=== PATIENT | male | born 1980 | race Caucasian/White ===

== ENCOUNTER 2020-05-04 14:23 | Emergency (ER) | payer MEDICAID, SELFPAY ==
[2020-05-04 14:31] VITALS: BP 77/57; PULSE 84; RESP 14; TEMP 36.1; O2SAT 96; BMI 20.6
--- NOTE | 2020-05-04 16:34 | ED_ITS ---
Documented by User: Veronica [email or web address] 05/04/20 16:53 HPI - Male Genitourinary General: Chief complaint: Urogenital-Male Stated complaint: sore throat/Dark Urine Time Seen by Provider: 05/04/20 16:24 Source: patient Mode of arrival: ambulatory Limitations: no limitations History of Present Illness: HPI Narrative: 39-year-old male patient presents to the emergency department with caregiver caregiver states patient is MRN does not verbalize. Caregiver states patient was running a fever so they took him to the clinic and had him tested for COVID which was negative. Caregiver also states she noticed that urine was dark and very strong caregiver states otherwise he is at his normal baseline. this has been going on for past few days Review of Systems General: Reports: 10 or more systems reviewed and unremarkable except in HPI and below, ROS unobtainable due to medical condition and ROS unobtainable due to mental status Const: Reports: fever(s) Physical Exam Narrative: EXAM NARRATIVE: Pt is yelling out which is normal for patients baseline of MR. Lungs are clear to auscultate heart rate is normal rate and rhythm Skin is pink warm and dry There is no obvious extremity edema pulses are strong and palpable I am unable to assess abdomen other than it is soft and nondistended and able to see if abdomen is tender due to patient's mentation HENMT: COMMON NORMALS: normocephalic and atraumatic HEAD & SCALP: normocephalic and atraumatic Eye: COMMON NORMALS: Equal, round and reactive pupils present PUPIL: Yes Equal, round and reactive pupils present Chest: COMMONS NORMALS: normal inspection of the chest Resp: COMMON NORMALS: normal respiratory effort, No retractions, No use of accessory muscles, clear to auscultation bilaterally and percussion normal AUSCULTATION: clear to auscultation bilaterally PERCUSSION: percussion normal Cardio: COMMON NORMALS: regular rate and regular rhythm RATE: regular rate RHYTHM: regular rhythm GI: COMMON NORMALS: Normal to inspection, nondistended, normoactive bowel sounds present and Soft to palpation PALPATION: Yes Soft to palpation Extremity: COMMON NORMALS: normal to inspection, capillary refill normal and no joint enlargement Neuro: MAGDI COMA SCALE: other (PT has history of MR and is unable to verbalize according to caregiver this is his normal baseline) Skin: COMMON NORMALS: no rashes or lesions noted, no wounds, turgor normal, no jaundice, no petechiae and no mottling GENERAL SKIN EXAM: no rashes or lesions noted and turgor normal Course ED course: Report given to Adrian Orozco he will assume care at this time Vital Signs: Vital signs: Vital Signs Temperature 97.0 F L 05/04/20 14:31 Pulse Rate 76 05/04/20 20:02 Respiratory Rate 18 05/04/20 20:02 Blood Pressure 94/52 05/04/20 20:02 Pulse Oximetry 97 05/04/20 20:02 MDM - Male Lab Data: Labs: Lab Results 05/04/20 05/04/20 05/04/20 Range/Units 16:30 16:30 16:30 WBC 16.1 H (4.0-10.0) 10^3/ uL RBC 3.99 L (4.1-5.3) 10^6/u L Hgb 12.1 (11.7-16.6) g/dL Hct 36.9 L (42.0-52.0) % MCV 92.5 (80-94) fL MCH 30.3 (28.0-34.0) pg MCHC 32.8 (30.0-36.0) g/dL RDW 12.5 (12.1-15.1) % Plt Count 191 (130-400) 10^3/c mm MPV 9.8 (7.4-10.4) fL Neut % (Auto) 83.7 % Lymph % (Auto) 9.2 % [place] % (Auto) 6.1 % Eos % (Auto) 0.2 % Baso % (Auto) 0.1 % Neut # (Auto) 13.48 H (1.8-7.7) 10^3/u L Lymph # (Auto) 1.5 (0.8-4.8) 10^3/u L [place] # (Auto) 1.0 H (0.2-0.9) 10^3/u L Eos # (Auto) 0.0 (0.0-0.8) 10^3/u L Baso # (Auto) 0.0 (0.0-0.1) 10^3/u L Nucleated RBC % (a uto) 0 % Nucleated RBCs # 0.0 /100WBC Sodium 137 (136-145) mmol/L Potassium 4.2 (3.5-5.1) mmol/L Chloride 99 (98-107) mmol/L Carbon Dioxide 23 (22-29) mmol/L Anion Gap 19.2 H (5-19) BUN 24 H (6-20) mg/dL Creatinine 1.1 (0.7-1.2) mg/dL GFR Calculation 73.8 L (90-130) mL/min Glucose 117 H (65-115) mg/dL Calculated Osmolal ity 289 (285-295) mOsm/k g Lactate 1.5 (0.5-2.2) mmol/L Calcium 10.1 (8.5-10.5) mg/dL Total Bilirubin 0.5 (0.15-1.2) mg/dL AST 16 (0-40) U/L ALT 20 (0-41) U/L Alkaline Phosphata se 88 (40-130) IU/L Total Protein 7.7 (6.6-8.7) g/dL Albumin 4.1 (3.5-5.2) g/dL Globulin 3.6 (1.3-4.6) g/dL Urine Color (Yellow) Urine Appearance (CLEAR) Urine pH (5-7) Ur Specific Gravit y (1.005-1.030) Urine Protein (Negative) Urine Glucose (UA) (Normal) Urine Ketones (Negative) Urine Blood (Negative) Urine Nitrate (Negative) Urine Bilirubin (Negative) Urine Urobilinogen (Negative) mg/dL Ur Leukocyte Arlene ase (Negative) Urine RBC (0-2) /hpf Urine WBC (0-5) /hpf Ur Squamous Epith Cells (0-5) /hpf Amorphous Sediment Urine Bacteria (NONE) /hpf Group A Strep Rapi d (Negative) 05/04/20 05/04/20 Range/Units 16:33 18:49 WBC (4.0-10.0) 10^3/ uL RBC (4.1-5.3) 10^6/u L Hgb (11.7-16.6) g/dL Hct (42.0-52.0) % MCV (80-94) fL MCH (28.0-34.0) pg MCHC (30.0-36.0) g/dL RDW (12.1-15.1) % Plt Count (130-400) 10^3/c mm MPV (7.4-10.4) fL Neut % (Auto) % Lymph % (Auto) % [place] % (Auto) % Eos % (Auto) % Baso % (Auto) % Neut # (Auto) (1.8-7.7) 10^3/u L Lymph # (Auto) (0.8-4.8) 10^3/u L [place] # (Auto) (0.2-0.9) 10^3/u L Eos # (Auto) (0.0-0.8) 10^3/u L Baso # (Auto) (0.0-0.1) 10^3/u L Nucleated RBC % (a uto) % Nucleated RBCs # /100WBC Sodium (136-145) mmol/L Potassium (3.5-5.1) mmol/L Chloride (98-107) mmol/L Carbon Dioxide (22-29) mmol/L Anion Gap (5-19) BUN (6-20) mg/dL Creatinine (0.7-1.2) mg/dL GFR Calculation (90-130) mL/min Glucose (65-115) mg/dL Calculated Osmolal ity (285-295) mOsm/k g Lactate (0.5-2.2) mmol/L Calcium (8.5-10.5) mg/dL Total Bilirubin (0.15-1.2) mg/dL AST (0-40) U/L ALT (0-41) U/L Alkaline Phosphata se (40-130) IU/L Total Protein (6.6-8.7) g/dL Albumin (3.5-5.2) g/dL Globulin (1.3-4.6) g/dL Urine Color Yellow (Yellow) Urine Appearance Hazy A (CLEAR) Urine pH 5 (5-7) Ur Specific Gravit y 1.020 (1.005-1.030) Urine Protein 1+ H (Negative) Urine Glucose (UA) Norm (Normal) Urine Ketones 1+ H (Negative) Urine Blood 3+ H (Negative) Urine Nitrate Negative (Negative) Urine Bilirubin Neg (Negative) Urine Urobilinogen 1 H (Negative) mg/dL Ur Leukocyte Arlene ase 2+ H (Negative) Urine RBC 25-40 H (0-2) /hpf Urine WBC 25-40 H (0-5) /hpf Ur Squamous Epith Cells 0-4 H (0-5) /hpf Amorphous Sediment Not Reportable Urine Bacteria 2+ H (NONE) /hpf Group A Strep Rapi d Negative (Negative) Discharge Plan Discharge Patient Disposition: Home Clinical Impression: Urinary tract infection Qualifiers: Urinary tract infection type: acute cystitis Hematuria presence: with hematuria Qualified Code(s): N30.01 - Acute cystitis with hematuria Condition: Stable Prescriptions: New Macrobid 100 mg capsule 100 mg PO BID 7 Days Qty: 14 RF: 0 No Action cyclobenzaprine 10 mg Tablet 10 mg PO DAILY PRN (Reason: MUSCLE SPASMS) RF: 0 terbinafine HCl 1 % Cream 1 applic TOPICAL BID PRN (Reason: Rash) RF: 0 acetaminophen 325 mg Tablet 325 - 650 mg PO Q4H PRN (Reason: Pain) RF: 0 loratadine 5 mg/5 mL Solution 10 mg PO DAILY PRN (Reason: ALLERGIES) RF: 0 loperamide 2 mg Tablet 2 mg PO QID PRN (Reason: LOOSE STOOLS) RF: 0 amlodipine 5 mg Tablet 5 mg PO DAILY RF: 0 lorazepam 2 mg Tablet See Rx Instructions .ROUTE .COMPLEX RF: 0 hydrocortisone 1 % Cream See Rx Instructions .ROUTE .COMPLEX RF: 0 Banophen 25 mg Capsule 25 mg PO Q6H PRN (Reason: HIVES) RF: 0 metoprolol tartrate 50 mg Tablet 50 mg PO BID RF: 0 Fleet Enema 19-7 gram/118 mL Enema See Rx Instructions .ROUTE .COMPLEX RF: 0 omeprazole 20 mg Capsule,Delayed Release(Dr/Ec) 20 mg PO DAILY RF: 0 carbamazepine 100 mg/5 mL Suspension 10 mg PO BID RF: 0 ibuprofen 100 mg/5 mL Suspension See Rx Instructions .ROUTE .COMPLEX PRN (Reason: PAIN/FEVER) RF: 0 irbesartan 300 mg Tablet 300 mg PO DAILY RF: 0 Constulose 10 gram/15 mL Solution 20 g PO BID RF: 0 tizanidine 2 mg Capsule 2 mg PO TID RF: 0 Diastat AcuDial 5-7.5-10 mg Kit See Rx Instructions .ROUTE .COMPLEX RF: 0 Plus 29 mg iron- 1 mg Tablet 1 tab PO DAILY RF: 0 Robitussin Cold-Flu Night (PE) 12.5-5-325 mg/10 mL Liquid See Rx Instructions .ROUTE .COMPLEX PRN (Reason: Agitation) RF: 0 Discharge Orders: Discharge Order (Routine); Ordered 05/04/20 Ordered By: Adrian Orozco Referrals: Chad Luis DO [Primary Care Provider] - Discharge Diet: Advance as tolerated Discharge Activity: Resume usual activity Patient Instructions: Urinary Tract Infection in Men (ED) Activity Restrictions/Additional Instructions: Follow-up with medical provider as directed. Take medications as prescribed. Return to the ER or your medical provider if condition worsens. Please read and understand discharge instructions. If any questions ask please. 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 Documented by User: AL Hanson 05/04/20 21:29 HPI - Male Genitourinary General: Chief complaint: Urogenital-Male Stated complaint: sore throat/Dark Urine Time Seen by Provider: 05/04/20 16:24 Course Vital Signs: Vital signs: Vital Signs Temperature 97.0 F L 05/04/20 14:31 Pulse Rate 76 05/04/20 20:02 Respiratory Rate 18 05/04/20 20:02 Blood Pressure 94/52 05/04/20 20:02 Pulse Oximetry 97 05/04/20 20:02 MDM - Male Lab Data: Labs: Lab Results 05/04/20 05/04/20 05/04/20 Range/Units 16:30 16:30 16:30 WBC 16.1 H (4.0-10.0) 10^3/ uL RBC 3.99 L (4.1-5.3) 10^6/u L Hgb 12.1 (11.7-16.6) g/dL Hct 36.9 L (42.0-52.0) % MCV 92.5 (80-94) fL MCH 30.3 (28.0-34.0) pg MCHC 32.8 (30.0-36.0) g/dL RDW 12.5 (12.1-15.1) % Plt Count 191 (130-400) 10^3/c mm MPV 9.8 (7.4-10.4) fL Neut % (Auto) 83.7 % Lymph % (Auto) 9.2 % [place] % (Auto) 6.1 % Eos % (Auto) 0.2 % Baso % (Auto) 0.1 % Neut # (Auto) 13.48 H (1.8-7.7) 10^3/u L Lymph # (Auto) 1.5 (0.8-4.8) 10^3/u L [place] # (Auto) 1.0 H (0.2-0.9) 10^3/u L Eos # (Auto) 0.0 (0.0-0.8) 10^3/u L Baso # (Auto) 0.0 (0.0-0.1) 10^3/u L Nucleated RBC % (a uto) 0 % Nucleated RBCs # 0.0 /100WBC Sodium 137 (136-145) mmol/L Potassium 4.2 (3.5-5.1) mmol/L Chloride 99 (98-107) mmol/L Carbon Dioxide 23 (22-29) mmol/L Anion Gap 19.2 H (5-19) BUN 24 H (6-20) mg/dL Creatinine 1.1 (0.7-1.2) mg/dL GFR Calculation 73.8 L (90-130) mL/min Glucose 117 H (65-115) mg/dL Calculated Osmolal ity 289 (285-295) mOsm/k g Lactate 1.5 (0.5-2.2) mmol/L Calcium 10.1 (8.5-10.5) mg/dL Total Bilirubin 0.5 (0.15-1.2) mg/dL AST 16 (0-40) U/L ALT 20 (0-41) U/L Alkaline Phosphata se 88 (40-130) IU/L Total Protein 7.7 (6.6-8.7) g/dL Albumin 4.1 (3.5-5.2) g/dL Globulin 3.6 (1.3-4.6) g/dL Urine Color (Yellow) Urine Appearance (CLEAR) Urine pH (5-7) Ur Specific Gravit y (1.005-1.030) Urine Protein (Negative) Urine Glucose (UA) (Normal) Urine Ketones (Negative) Urine Blood (Negative) Urine Nitrate (Negative) Urine Bilirubin (Negative) Urine Urobilinogen (Negative) mg/dL Ur Leukocyte Arlene ase (Negative) Urine RBC (0-2) /hpf Urine WBC (0-5) /hpf Ur Squamous Epith Cells (0-5) /hpf Amorphous Sediment Urine Bacteria (NONE) /hpf Group A Strep Rapi d (Negative) 05/04/20 05/04/20 Range/Units 16:33 18:49 WBC (4.0-10.0) 10^3/ uL RBC (4.1-5.3) 10^6/u L Hgb (11.7-16.6) g/dL Hct (42.0-52.0) % MCV (80-94) fL MCH (28.0-34.0) pg MCHC (30.0-36.0) g/dL RDW (12.1-15.1) % Plt Count (130-400) 10^3/c mm MPV (7.4-10.4) fL Neut % (Auto) % Lymph % (Auto) % [place] % (Auto) % Eos % (Auto) % Baso % (Auto) % Neut # (Auto) (1.8-7.7) 10^3/u L Lymph # (Auto) (0.8-4.8) 10^3/u L [place] # (Auto) (0.2-0.9) 10^3/u L Eos # (Auto) (0.0-0.8) 10^3/u L Baso # (Auto) (0.0-0.1) 10^3/u L Nucleated RBC % (a uto) % Nucleated RBCs # /100WBC Sodium (136-145) mmol/L Potassium (3.5-5.1) mmol/L Chloride (98-107) mmol/L Carbon Dioxide (22-29) mmol/L Anion Gap (5-19) BUN (6-20) mg/dL Creatinine (0.7-1.2) mg/dL GFR Calculation (90-130) mL/min Glucose (65-115) mg/dL Calculated Osmolal ity (285-295) mOsm/k g Lactate (0.5-2.2) mmol/L Calcium (8.5-10.5) mg/dL Total Bilirubin (0.15-1.2) mg/dL AST (0-40) U/L ALT (0-41) U/L Alkaline Phosphata se (40-130) IU/L Total Protein (6.6-8.7) g/dL Albumin (3.5-5.2) g/dL Globulin (1.3-4.6) g/dL Urine Color Yellow (Yellow) Urine Appearance Hazy A (CLEAR) Urine pH 5 (5-7) Ur Specific Gravit y 1.020 (1.005-1.030) Urine Protein 1+ H (Negative) Urine Glucose (UA) Norm (Normal) Urine Ketones 1+ H (Negative) Urine Blood 3+ H (Negative) Urine Nitrate Negative (Negative) Urine Bilirubin Neg (Negative) Urine Urobilinogen 1 H (Negative) mg/dL Ur Leukocyte Arlene ase 2+ H (Negative) Urine RBC 25-40 H (0-2) /hpf Urine WBC 25-40 H (0-5) /hpf Ur Squamous Epith Cells 0-4 H (0-5) /hpf Amorphous Sediment Not Reportable Urine Bacteria 2+ H (NONE) /hpf Group A Strep Rapi d Negative (Negative) Discharge Plan Discharge Patient Disposition: Home Clinical Impression: Urinary tract infection Qualifiers: Urinary tract infection type: acute cystitis Hematuria presence: with hematuria Qualified Code(s): N30.01 - Acute cystitis with hematuria Condition: Stable Prescriptions: New Macrobid 100 mg capsule 100 mg PO BID 7 Days Qty: 14 RF: 0 No Action cyclobenzaprine 10 mg Tablet 10 mg PO DAILY PRN (Reason: MUSCLE SPASMS) RF: 0 terbinafine HCl 1 % Cream 1 applic TOPICAL BID PRN (Reason: Rash) RF: 0 acetaminophen 325 mg Tablet 325 - 650 mg PO Q4H PRN (Reason: Pain) RF: 0 loratadine 5 mg/5 mL Solution 10 mg PO DAILY PRN (Reason: ALLERGIES) RF: 0 loperamide 2 mg Tablet 2 mg PO QID PRN (Reason: LOOSE STOOLS) RF: 0 amlodipine 5 mg Tablet 5 mg PO DAILY RF: 0 lorazepam 2 mg Tablet See Rx Instructions .ROUTE .COMPLEX RF: 0 hydrocortisone 1 % Cream See Rx Instructions .ROUTE .COMPLEX RF: 0 Banophen 25 mg Capsule 25 mg PO Q6H PRN (Reason: HIVES) RF: 0 metoprolol tartrate 50 mg Tablet 50 mg PO BID RF: 0 Fleet Enema 19-7 gram/118 mL Enema See Rx Instructions .ROUTE .COMPLEX RF: 0 omeprazole 20 mg Capsule,Delayed Release(Dr/Ec) 20 mg PO DAILY RF: 0 carbamazepine 100 mg/5 mL Suspension 10 mg PO BID RF: 0 ibuprofen 100 mg/5 mL Suspension See Rx Instructions .ROUTE .COMPLEX PRN (Reason: PAIN/FEVER) RF: 0 irbesartan 300 mg Tablet 300 mg PO DAILY RF: 0 Constulose 10 gram/15 mL Solution 20 g PO BID RF: 0 tizanidine 2 mg Capsule 2 mg PO TID RF: 0 Diastat AcuDial 5-7.5-10 mg Kit See Rx Instructions .ROUTE .COMPLEX RF: 0 Plus 29 mg iron- 1 mg Tablet 1 tab PO DAILY RF: 0 Robitussin Cold-Flu Night (PE) 12.5-5-325 mg/10 mL Liquid See Rx Instructions .ROUTE .COMPLEX PRN (Reason: Agitation) RF: 0 Discharge Orders: Discharge Order (Routine); Ordered 05/04/20 Ordered By: Adrian Orozco Referrals: Chad Luis, [Primary Care Provider] - Discharge Diet: Advance as tolerated Discharge Activity: Resume usual activity Patient Instructions: Urinary Tract Infection in Men (ED) Activity Restrictions/Additional Instructions: Follow-up with medical provider as directed. Take medications as prescribed. Return to the ER or your medical provider if condition worsens. Please read and understand discharge instructions. If any questions ask please. 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
[2020-05-04] MEDS: sodium chloride 0.9% 1,000 ML 999 ML IV (16:45)
[2020-05-04 16:50] LABS: Basophils % 0.1 %; Eosinophils % 0.2 %; Hematocrit 36.9 % (42.0-52.0); Hemoglobin 12.1 g/dL (11.7-16.6); Lymphocytes # 1.5 10^3/uL (0.8-4.8); Lymphocytes % 9.2 %; Mean Corpuscular HGB Conc 32.8 g/dL (30.0-36.0); Mean Corpuscular Hemoglobin 30.3 pg (28.0-34.0); Mean Corpuscular Volume 92.5 fL (80-94); Mean Platelet Volume 9.8 fL (7.4-10.4); Monocytes % 6.1 %; Neutrophils # 13.48 10^3/uL (1.8-7.7); Neutrophils % 83.7 %; Nucleated Red Blood Cells % 0 %; Platelet Count 191 10^3/cmm (130-400); Red Blood Count 3.99 10^6/uL (4.1-5.3); Red Cell Distribution Width 12.5 % (12.1-15.1); White Blood Count 16.1 10^3/uL (4.0-10.0)
[2020-05-04 17:03] LABS: Rapid Strep A Test Negative (Negative)
[2020-05-04 17:07] LABS: Lactate (Lactic Acid level) 1.5 mmol/L (0.5-2.2)
[2020-05-04 17:08] LABS: Alanine Aminotransferase 20 U/L (0-41); Albumin Level 4.1 g/dL (3.5-5.2); Alkaline Phosphatase 88 IU/L (40-130); Aspartate Amino Transferase 16 U/L (0-40); Blood Urea Nitrogen 24 mg/dL (6-20); Calcium 10.1 mg/dL (8.5-10.5); Carbon Dioxide 23 mmol/L (22-29); Chloride 99 mmol/L (98-107); Globulin 3.6 g/dL (1.3-4.6); Glomerular Filtration Rate 73.8 mL/min (90-130); Glucose 117 mg/dL (65-115); Osmolality Calculated 289 mOsm/kg (285-295); Sodium 137 mmol/L (136-145); Total Bilirubin 0.5 mg/dL (0.15-1.2); Total Protein 7.7 g/dL (6.6-8.7)
[2020-05-04 17:09] LABS: Anion Gap 19.2 (5-19); Potassium 4.2 mmol/L (3.5-5.1)
[2020-05-04 19:15] LABS: Bilirubin Urine Neg (Negative); Blood Urine 3+ (Negative); Glucose Urine UA Norm (Normal); Ketones Urine 1+ (Negative); Leukocyte Esterase Urine 2+ (Negative); Nitrate Urine Negative (Negative); Protein Urine 1+ (Negative); Urine Appearance Hazy (CLEAR); Urine Color Yellow (Yellow); Urobilinogen Urine 1 mg/dL (Negative); pH Urine 5 (5-7)
[2020-05-04 19:16] LABS: Add Urine Microscopic? YES
[2020-05-04 19:21] LABS: Add Urine Culture? Yes; Bacteria Urine 2+ /hpf; RBC Urine 25-40 /hpf (0-2); Squamous Epithelial Cell Urine 0-4 /hpf (0-5); WBC Urine 25-40 /hpf (0-5)
[2020-05-04 20:02] VITALS: BP 94/52; PULSE 76; RESP 18; O2SAT 97
[2020-05-04] MEDS: cefTRIAXone 1,000 mg SDV 1000 MG IM (20:03)
--- NOTE | 2020-05-06 09:38 | PC.NURSE ---
Lab called with preliminary blood cultures. Info given to Dr. Esparza
== END 2020-05-04 20:04 | disposition home or self-care (01) ==
PROVIDERS: Registered Nurse; Emergency Provider Nurse Practitioner Family; PCP Internal Medicine
DX: N30.01 Acute cystitis with hematuria (principal)
CPT/HCPCS: 12345; 80053; 81001; 83605; 85025; 87040; 87077; 87081; 87086; 87186; 87205; 87880; 96361; 96365; 96372; 99283; J0696; J7030

== ENCOUNTER → 2022-01-18 13:51 | Outpatient (BNVA) | payer MEDICAID, SELFPAY | PROVIDERS: PCP Internal Medicine; Visit Provider Urology | DX: N39.0 Urinary tract infection, site not specified (principal); N50.89 Other specified disorders of the male genital organs | CPT/HCPCS: 99213 ==

== ENCOUNTER 2022-07-20 13:15 | Outpatient (CLI) | payer MEDICARE, MEDICAID, SELFPAY ==
--- NOTE | 2022-07-20 13:00 | US_ITS ---
WS: [id number] RENAL ULTRASOUND HISTORY: RECURRENT UTI COMPARISON: None available. TECHNIQUE: 2-D and color Doppler imaging of the kidney submitted. Right kidney: 8.2 cm x 4.1 cm x 4.8 cm. Low normal size kidney. No cortical thinning. No hydronephrosis or solid mass. Left kidney: 8.7 cm x 4.1 cm x 4.8 cm. Low normal size kidney. No cortical thinning. No hydronephrosis or mass. Aorta: Normal. Urinary Bladder: Normal distention. US/US renal BI* [id number] IMPRESSION: Low normal size kidneys. Otherwise negative.
--- NOTE | 2022-07-20 13:50 | XR_ITS ---
WS: [id number] Exam: XR KUB [id number] Date/Time of Exam: 07/20/2022 1:59 PM Reason For Exam: CRYPTORCHIDISM No bowel obstruction or free air. No sign of organ enlargement. No calcifications seen in the region of the kidneys. Rectal fecal impaction noted. Superior and lateral dislocation of the left femoral he ad. Deformity of the left acetabulum. Hypoplasia of the pelvis. Levoscoliosis of the lumbar spine. XR/XR KUB [id number] IMPRESSION: 1. No acute abdominal process. 2. Moderate-sized rectal fecal impaction. 3. Chronically dislocated left hip as discussed above.
== END 2022-07-20 13:16 | disposition home or self-care (01) ==
LOC: RAD 13:16
PROVIDERS: PCP Internal Medicine; Visit Provider Urology
DX: N50.89 Other specified disorders of the male genital organs (principal); N39.0 Urinary tract infection, site not specified; K59.00 Constipation, unspecified
CPT/HCPCS: 74018; 76770; 81003; 99213

== ENCOUNTER → 2023-05-22 18:33 | Outpatient (BNVA) | payer MEDICARE, MEDICAID, SELFPAY | PROVIDERS: PCP Internal Medicine; Visit Provider Nurse Practitioner | DX: J06.9 Acute upper respiratory infection, unspecified (principal) | CPT/HCPCS: 87426 ==

== ENCOUNTER → 2024-05-22 13:00 | Outpatient (BNVA) | payer MEDICARE, MEDICAID, SELFPAY | PROVIDERS: PCP Internal Medicine; Visit Provider Student in an Organized Health Care Education/Training Program | DX: Z22.7 Latent tuberculosis (principal) | CPT/HCPCS: 71045; 99205 ==

== ENCOUNTER 2025-01-09 14:49 | Outpatient (CLI) | payer MEDICARE, MEDICAID, SELFPAY ==
--- NOTE | 2025-01-09 14:53 | XR_ITS ---
WS: [id number] SCREENING DEXA SCAN [employer] CLINICAL INFORMATION: OTHER SPECIFIED DISORDERS OF BD STRUCTURES COMPARISON: None. FINDINGS: The L1-L4 bone mineral density measures 0.777 g/cm2. This corresponds to a T score score of -3.7 and Z score of -3.3. XR/XR DEXA axial skeleton* [id number] IMPRESSION: Osteoporosis lumbar spine
== END 2025-01-09 14:50 | disposition home or self-care (01) ==
LOC: RAD 14:52
PROVIDERS: PCP Family Medicine; Visit Provider Family Medicine
DX: M85.88 Other specified disorders of bone density and structure, other site (principal); M81.0 Age-related osteoporosis without current pathological fracture
CPT/HCPCS: 77080

== ENCOUNTER → 2025-02-20 09:56 | Outpatient (BNVA) | payer MEDICARE, MEDICAID, SELFPAY | PROVIDERS: PCP Family Medicine; Visit Provider Internal Medicine | DX: E11.9 Type 2 diabetes mellitus without complications (principal); E03.9 Hypothyroidism, unspecified; M81.0 Age-related osteoporosis without current pathological fracture; E55.9 Vitamin D deficiency, unspecified; G80.9 Cerebral palsy, unspecified; N50.89 Other specified disorders of the male genital organs | CPT/HCPCS: 99204 ==

== ENCOUNTER → 2025-04-24 11:29 | Outpatient (BNVA) | payer MEDICARE, MEDICAID, SELFPAY | PROVIDERS: PCP Family Medicine; Visit Provider Internal Medicine | DX: M81.0 Age-related osteoporosis without current pathological fracture (principal); E55.9 Vitamin D deficiency, unspecified; G80.9 Cerebral palsy, unspecified | CPT/HCPCS: 99214 ==

== ENCOUNTER 2025-05-06 10:35 | Outpatient (CLI) | payer MEDICARE, MEDICAID, SELFPAY ==
--- NOTE | 2025-05-06 11:48 | US_ITS ---
WS: [id number] ULTRASOUND BILATERAL BREAST, limited HISTORY: GYNECOMASTIA/HYPERTROPHY OF BREAST COMPARISON: None available. TECHNIQUE: 2-D and Doppler. Ultrasound is directed to the retroareolar region of each breast. There is a small amount of soft tissue thickening posterior to the RIGHT nipple. This area of soft tissue thickening is just directly behind the nipples. Minimal changes of mild gynecomastia on the RIGHT. Area of concern measures 5 x 5 mm. US/US breast BI limited* [id number] IMPRESSION: BI-RADS: 2- Benign FOLLOW-UP: See Report Minimal RIGHT gynecomastia.
== END 2025-05-06 10:36 | disposition home or self-care (01) ==
PROVIDERS: PCP Family Medicine; Visit Provider Family Medicine
DX: N62 Hypertrophy of breast (principal); N64.89 Other specified disorders of breast; N64.59 Other signs and symptoms in breast
CPT/HCPCS: 76642

== ENCOUNTER → 2025-05-09 09:57 | Outpatient (BNVA) | payer MEDICARE, MEDICAID, SELFPAY | PROVIDERS: PCP Family Medicine; Visit Provider Dermatology | DX: L91.8 Other hypertrophic disorders of the skin (principal); D22.4 Melanocytic nevi of scalp and neck; L57.8 Other skin changes due to chronic exposure to nonionizing radiation; D48.5 Neoplasm of uncertain behavior of skin | CPT/HCPCS: 11102; 99203 ==